=== PATIENT | male | born 1945 | race African-American/Black ===

== ENCOUNTER 2021-01-08 17:03 | Emergency (ER) | payer OTHER ==
[~2021-01-08] VITALS: Ht 175.3 cm; Wt 112.0 kg
[2021-01-08 18:21] LABS: Basophils # (auto) 0.1 10 ^3/uL (0-0.2); Basophils % (auto) 1.1 % (0.0-2.0); Eosinophils # (auto) 0.4 10 ^3/uL (0-0.8); Eosinophils % (auto) 8.9 % (0.0-7.0); Hematocrit 43.9 % (41.0-53.0); Hemoglobin 14.5 g/dL (13.5-17.5); Lymphocytes # (auto) 2.5 10 ^3/uL (0.4-5.4); Lymphocytes % (auto) 50.2 % (10.0-50.0); Mean Corpuscular Hgb Conc. 33.2 g/dL (32.0-36.0); Mean Corpuscular Volume 87.5 fL (80.0-100.0); Monocytes # (auto) 0.6 10 ^3/uL (0-1.3); Monocytes % (auto) 12.1 % (0.0-12.0); Neutrophils # (auto) 1.4 10 ^3/uL (1.6-8.6); Neutrophils % (auto) 27.7 % (37.0-80.0); Nucleated Red Blood Cells % 0.1 %; Red Blood Cells 5.02 10^6/uL (4.5-5.90); Red Cell Distribution Width 14.5 % (11.8-14.3)
[2021-01-08 18:43] LABS: Albumin 3.5 g/dL (3.4-5.0); Anion Gap 6 (5-15); Blood Urea Nitrogen 16 mg/dL (7-18); Calcium 9.1 mg/dL (8.5-10.1); Carbon Dioxide 25 mmol/L (21-32); Chloride 108 mmol/L (98-107); Glucose 97 mg/dL (74-106); Magnesium 2.3 mg/dL (1.6-2.6); Potassium 4.3 mmol/L (3.5-5.1); Sodium 139 mmol/L (136-145)
[2021-01-08 18:50] LABS: Alanine Aminotransferase 30 U/L (16-61); Alkaline Phosphatase 61 U/L (45-117); Aspartate Aminotransferase 17 U/L (15-37); BUN/Creatinine Ratio 12.5; Bilirubin, Total 0.6 mg/dL (0.2-1.0); GFR African American 70 mL/min; GFR Non-African American 58 mL/min; Total Protein 7.6 g/dL (6.4-8.2)
[2021-01-09] MEDS ORDERED: ASPirin 325 MG TAB PO ONE (03:15)
[2021-01-09 04:51] VITALS: BP 147/75
== END 2021-01-09 04:54 | disposition home or self-care (01) ==
LOC: ER 17:05
DX: R07.89 Other chest pain (principal); I10 Essential (primary) hypertension; Z86.73 Personal history of transient ischemic attack (TIA), and cerebral infarction without residual deficits; Z98.890 Other specified postprocedural states
CPT/HCPCS: 36415; 71046; 80053; 83735; 84484; 85025; 93005

== ENCOUNTER 2021-11-02 22:25 | Emergency (ER) | payer MEDICARE, OTHER ==
[~2021-11-02] VITALS: Ht 175.3 cm; Wt 116.6 kg
[2021-11-02] MEDS ORDERED: ALUM & MAG HYDROX-SIMETH LIQ(MAALOX) 30 ML PO ONE (22:45)
[2021-11-02] MEDS ORDERED: ASPirin 81 mg TAB PO ONE (22:45)
[2021-11-02 23:04] VITALS: BP 132/69
[2021-11-02 23:34] LABS: Basophils # (auto) 0 10 ^3/uL (0-0.2); Basophils % (auto) 0.6 % (0.0-2.0); Eosinophils # (auto) 0.4 10 ^3/uL (0-0.8); Eosinophils % (auto) 8.1 % (0.0-7.0); Hematocrit 40.2 % (41.0-53.0); Hemoglobin 13.4 g/dL (13.5-17.5); Lymphocytes # (auto) 2.2 10 ^3/uL (0.4-5.4); Lymphocytes % (auto) 40.9 % (10.0-50.0); Mean Corpuscular Hemoglobin 28.9 pg (28.0-32.0); Mean Corpuscular Hgb Conc. 33.4 g/dL (32.0-36.0); Mean Corpuscular Volume 86.6 fL (80.0-100.0); Monocytes # (auto) 0.9 10 ^3/uL (0-1.3); Monocytes % (auto) 15.7 % (0.0-12.0); Neutrophils # (auto) 1.9 10 ^3/uL (1.6-8.6); Neutrophils % (auto) 34.7 % (37.0-80.0); Nucleated Red Blood Cells % 0.1 %; Red Blood Cells 4.65 10^6/uL (4.5-5.90); Red Cell Distribution Width 14.5 % (11.8-14.3); White Blood Cell 5.5 10^3/uL (4.4-10.8)
[2021-11-02 23:54] LABS: Albumin 3.4 g/dL (3.4-5.0); Calcium 8.7 mg/dL (8.5-10.1); Potassium 3.9 mmol/L (3.5-5.1)
[2021-11-02 23:57] LABS: BUN/Creatinine Ratio 9.7
[2021-11-03 00:04] LABS: Bilirubin, Total 0.7 mg/dL (0.2-1.0); Total Protein 7.2 g/dL (6.4-8.2)
== END 2021-11-03 08:55 | disposition home or self-care (01) ==
LOC: ER 22:25
DX: R07.9 Chest pain, unspecified (principal); I10 Essential (primary) hypertension
CPT/HCPCS: 36415; 71045; 80053; 84484; 85025; 93005

== ENCOUNTER 2024-06-03 01:37 | Emergency (ER) | payer MEDICARE, OTHER ==
[~2024-06-03] VITALS: Ht 175.3 cm; Wt 113.6 kg
--- NOTE | 2024-06-03 02:05 | ED.PDOC ---
HPI Comments HPI: Poor Historian. 78-year-old male presents to emergency department for evaluation of midsternal chest heaviness that happened while he was at rest watching TV at 11:30 p.m. few hours ago. Patient later felt left upper extremity burning sensation. Patient decided to come here for evaluation. Patient took a baby aspirin prior to arrival. Past Medcial History: Hypertension, hyperlipidemia Past Surgical History: Hernia repair REVIEW OF SYSTEMS: CONSTITUTIONAL: Denies acute: fever, diaphoresis, chills, generalized weakness. HEAD: Denies acute: headache, photophobia Eyes: Denies acute: Double vision, vision loss, eye pain, eye discharge. EARS: Denies acute: tinnitus, hearing loss, ear discharge, ear pain, THROAT: Denies acute: sore throat, swelling, difficulty swallowing , pain with swallowing, change in voice. NECK: Denies acute: neck pain, neck swelling, stiff neck. HEART: Denies acute : , palpitations, LUNGS: Denies acute: SOB, wheezing, cough, hemoptysis ABDOMEN: Denies acute: abdominal pain, Nausea, Vomiting, diarrhea, melena , hematemesis, hematochezia SKIN: Denies acute: rash, redness, lesions, itchiness. EXTREMITIES: Denies acute: calf pain, numbness, tingling, weakness, denies pain in extremity. Denies acute: Low back pain. Neuro: Denies acute: focal neurological deficit, motor or sensory focal neurological deficit, tremors, seizure like activity, confusion, dizziness, change in mental status, loss of bowel or bladder function, cauda equina like symptoms. : Denies acute: dysuria, hematuria, flank pain, increase in urinary frequency. PSYCH: Denies acute: hallucination, suicidal ideation, homicidal ideation. PHYSICAL EXAM: General: no acute distress, awake and alert. Head: normocephalic, atraumatic. Neck: supple, trachea is midline, no swelling. Throat: Normal phonation. Eyes:, no erythema, no purulent discharge, no proptosis, no icterus. Heart: regular rate, regular rhythm, no significant murmur appreciated. Lungs: no apparent respiratory distress, Able to speak in full sentences. No wheezing, no rhonchi, no crackles. No stridors Clear to auscultation bilaterally. Abdomen: non tender to palpation, non distended, soft, no guarding, no rebound, + bowel sounds. Obese. Neuro: Awake, Alert, oriented to name, self, situation, follows commands GCS=15. Speech is normal. Skin: no petechia, no purpura, no cyanosis, non-pale, not jaundice. Lower extremities: --no - Pitting edema no deformity, no focal swelling, no calf TTP. Makes eye contact. moves all four extremities. Face: no apparent facial droop. Ambulating in the ED independently. Chief Complaint: Chest Pain Time Seen by MD: 01:57 Reviewed Notes: Nurses Notes, Medications, Allergies Allergies: Coded Allergies: NO KNOWN ALLERGIES (Unverified , 01/08/21) Information Source: Patient Mode of Arrival: Ambulatory Past Medical History PAST MEDICAL HISTORY: Denies Surgical History: Denies all surgeries Family History Family History: Reviewed,noncontributory to illness, No family hx of Cancer, No family hx of DM, No family hx of Heart jaquan, No family hx of HTN, No family hx ofKidney jaquan, No family hx of Liver jaquan, No family hx of Lung jaquan, No family hx of Stroke Social History Smoker: Non-Smoker Alcohol: Denies ETOH Use Drugs: Denies Drug Use Was a procedure done? Was a procedure done?: No CP Differential Dx Differential Diagnosis: N/A Differential Diagnosis: Other (Ddx include but not limitied to gastritis, musculoskeletal pain, radiculopathy, atypical chest pain, dissection, aneurysm, ACS, unstable angina, hiatal hernia, GERD, anxiety, costochondritis, PE, pneumothroax, neoplasm, cardiac ischemia, drug abuse, anemia.) X-Ray, Labs, Meds, VS Vital Signs Date Time Temp Pulse Resp B/P (MAP) Pulse Ox O2 Delivery O2 Flow Rate FiO2 06/03/24 02:43 58 06/03/24 01:43 67 06/03/24 01:42 98.8 61 17 143/69 (93) 96 Lab Test 06/03/24 02:50 06/03/24 01:47 Range/Units Troponin I High Sensitivity 4 4 </=54 ng/L White Blood Count 7.9 4.4-10.8 10^3/uL Red Blood Count 4.61 4.5-5.90 10^6/uL Hemoglobin 13.6 13.5-17.5 g/dL Hematocrit 40.5 L 41.0-53.0 % Mean Corpuscular Volume 87.9 80.0-100.0 fL Mean Corpuscular Hemoglobin 29.4 28.0-32.0 pg Mean Corpuscular Hemoglobin Concent 33.5 32.0-36.0 g/dL Red Cell Distribution Width 14.0 11.8-14.3 % Platelet Count 174 140-450 10^3/uL Mean Platelet Volume 8.0 6.9-10.8 fL Neutrophils (%) (Auto) 37.0-80.0 % Lymphocytes (%) (Auto) 10.0-50.0 % Monocytes (%) (Auto) 0.0-12.0 % Basophils (%) (Auto) 0.0-2.0 % Neutrophils # (Auto) 1.6-8.6 10 ^3/uL Lymphocytes # (Auto) 0.4-5.4 10 ^3/uL Monocytes # (Auto) 0-1.3 10 ^3/uL Differential Total Cells Counted 100.0 100 Neutrophils % (Manual) 25 L 37.0-80.0 Band Neutrophils % (Manual) 0 Lymphocytes % (Manual) 62 H 10.0-50.0 Monocytes % (Manual) 8 0-12 Eosinophils % (Manual) 5 0-7 Basophils % (Manual) 0 0.0-2.0 Metamyelocytes % (manual) 0 Myelocytes % (Manual) 0 Promyelocytes % (Manual) 0 Blast Cells % (Manual) 0 Reactive Lymphocytes 0 Platelet Estimate Adequate Prothrombin Time 10.9 9.3-11.8 sec Prothrombin Time INR 1.03 0.9-1.15 Activated Partial Thromboplast Time 26.8 24.5-34.5 SEC Sodium Level 141 136-145 mmol/L Potassium Level 3.8 3.5-5.1 mmol/L Chloride Level 108 H 98-107 mmol/L Carbon Dioxide Level 26 20-31 mmol/L Anion Gap 7 5-15 Blood Urea Nitrogen 17 9-23 mg/dL Creatinine 1.33 H 0.700-1.30 mg/dL Glomerular Filtration Rate Calc 54 >90 mL/min BUN/Creatinine Ratio 12.8 10.0-20.0 Serum Glucose 103 74-106 mg/dL Calcium Level 10.4 8.7-10.4 mg/dL Magnesium Level 1.9 1.6-2.6 mg/dL Total Bilirubin 0.7 0.2-1.0 mg/dL Aspartate Amino Transferase (AST) 19 13-40 U/L Alanine Aminotransferase (ALT) 28 7-40 U/L Alkaline Phosphatase 54 46-116 U/L B-Type Natriuretic Peptide 20.65 0-100 pg/mL Total Protein 6.9 5.7-8.2 g/dL Albumin 4.1 3.2-4.8 g/dL Time of 1ST Reevaluation: 02:45 Reevaluation 1ST: Improved Patient Education/Counseling: Diagnosis, Treatment Family Education/Counseling: Other Comments Patient presented with the above HPI.---cardiac---workup was initiated. patient was found with the above mentioned diagnosis. the following medications were ordered: Aspirin and nitroglycerin please refer to order lists of meds and tests obtained by myself Dr. Molina. Patient ED course and VS have been stabilized. Patient has been reassessed in the ED and remained in a stable condition. Pertinent incidental findings were discussed with the patient and/or family. Patient/family voices understanding and is agreeable with plan. Patient has been observed in the ED adequate length of time to insure improvement/stability. Escalation of care considered: Consideration of escalation to observation or admission Patient was ADMITTED to the medicine team for further evaluation and treatment of their presentation. All the reports of any imaging studies that were ordered by myself were reviewed by myself. Departure 1 Departure Time of Disposition: 02:04 Impression: Primary Impression: Chest pain Disposition: 09 ADMITTED INPATIENT Admit to: [facility] Condition: Guarded Discharged With: Self Critical Care Note Critical Care Time?: No Heart Score Heart Score: Heart Score Response (Comments) Value History Moderate Suspicious 1 EKG Normal 0 Age >65 2 Risk Factors 1 or 2 risk factors 1 Troponin Normal limit 0 Total 4 HERNAN MOLINA DO Jun 03, 2024 02:05
[2024-06-03 02:16] LABS: Hematocrit 40.5 % (41.0-53.0); Hemoglobin 13.6 g/dL (13.5-17.5); Mean Corpuscular Hemoglobin 29.4 pg (28.0-32.0); Mean Corpuscular Hgb Conc. 33.5 g/dL (32.0-36.0); Mean Corpuscular Volume 87.9 fL (80.0-100.0); Platelet Count (auto) 174 10^3/uL (140-450); Red Blood Cells 4.61 10^6/uL (4.5-5.90); White Blood Cell 7.9 10^3/uL (4.4-10.8)
[2024-06-03 02:20] LABS: Band Neutrophils % (manual) 0; Basophils % (manual) 0 (0.0-2.0); Blast Cells 0; Metamyelocytes % 0; Myelocytes % 0; Promyelocytes % 0; Reactive Lymphocytes 0
[2024-06-03 02:24] LABS: INR 1.03 (0.9-1.15); Partial Thromboplastin Time 26.8 SEC (24.5-34.5); Prothrombin Time 10.9 sec (9.3-11.8)
[2024-06-03 03:14] LABS: Eosinophils % (manual) 5 (0-7); Lymphocytes % (manual) 62 (10.0-50.0); Monocytes % (manual) 8 (0-12); Platelet Estimate Adequate
[2024-06-03 03:21] LABS: Alanine Aminotransferase 28 U/L (7-40); Alkaline Phosphatase 54 U/L (46-116); Anion Gap 7 (5-15); Calcium 10.4 mg/dL (8.7-10.4); Carbon Dioxide 26 mmol/L (20-31); Glucose 103 mg/dL (74-106); Magnesium 1.9 mg/dL (1.6-2.6); Potassium 3.8 mmol/L (3.5-5.1); Sodium 141 mmol/L (136-145)
[2024-06-03 03:22] LABS: Albumin 4.1 g/dL (3.2-4.8); Aspartate Aminotransferase 19 U/L (13-40); BUN/Creatinine Ratio 12.8 (10.0-20.0); Bilirubin, Total 0.7 mg/dL (0.2-1.0); Blood Urea Nitrogen 17 mg/dL (9-23); Total Protein 6.9 g/dL (5.7-8.2)
[2024-06-03 03:27] LABS: Chloride 108 mmol/L (98-107)
--- NOTE | 2024-06-03 03:31 | DVH ---
CHEST RADIOGRAPH Indication: cp Technique: Single frontal view of the chest was obtained Comparison: CHEST PORTABLE on DOS: 11/02/21, CXRP on DOS: 11/02/21 FINDINGS: Lines and Tubes: None Lungs: No focal consolidation. Pleura: No effusion. No pneumothorax. Cardiomediastinal contours: Unremarkable Bones: No acute osseous abnormality. IMPRESSION: No acute cardiopulmonary disease.
--- NOTE | 2024-06-03 06:44 | ECG ---
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
[2024-06-03 07:37] VITALS: BP 164/99; PULSE 77; RESP 17; TEMP 97.9; O2SAT 96
[2024-06-03] MEDS: NITROGLYCERIN 0.4 MG SL TAB SL ONE (07:40)
[2024-06-03] MEDS: ASPirin-EC 325mg tab PO ONE (08:10)
--- NOTE | 2024-06-03 12:21 | ECG ---
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
--- NOTE | 2024-06-03 12:22 | ECG ---
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
== END 2024-06-03 08:56 | disposition left against medical advice (07) ==
LOC: ER 01:37
DX: R07.89 Other chest pain (principal); E78.5 Hyperlipidemia, unspecified; I10 Essential (primary) hypertension; Z98.890 Other specified postprocedural states
CPT/HCPCS: 36415; 71045; 80053; 83735; 83880; 84484; 85007; 85027; 85610; 85730; 93005

== ENCOUNTER 2024-06-13 06:21 | Inpatient (IN) | payer MEDICARE, OTHER ==
[~2024-06-13] VITALS: Ht 175.3 cm; Wt 113.5 kg
--- NOTE | 2024-06-13 07:00 | ED.PDOC ---
HPI Comments 78-year-old male presents with a chief complaint of chest pain x onset last night/this morning at midnight. Patient states that he was at rest, watching TV, when he had sudden onset of chest pain. Patient reports that he has pain to the sternal aspect of his chest, describes as tightness, and rates his pain a 7/10. Patient reports that nothing makes the pain worse, but stretching helps alleviate the pain a noticeable amount. Patient reports that he was seen here on 06/03/2024 for the same chief complaint and was worked up. Patient reports at that time he had an accompanying burning sensation that radiated down his left arm, but not today. EKG shows NSR with rate of 69. No other symptoms or modifying factors present at this time. Chief Complaint: Chest Pain Time Seen by MD: 06:27 Reviewed Notes: Medications, Allergies Allergies: Coded Allergies: NO KNOWN ALLERGIES (Unverified , 01/08/21) Information Source: Patient Mode of Arrival: Ambulatory Severity: Moderate Timing: Hours Duration: Intermittent Prehospital treatment: None Location: Substernal Radiation: No Radiation Quality: Tightness Onset: At Rest History of: Similar pain in past Past Medical History PAST MEDICAL HISTORY: Denies Surgical History: Denies all surgeries Family History Family History: Reviewed,noncontributory to illness, No family hx of Cancer, No family hx of DM, No family hx of Heart jaquan, No family hx of HTN, No family hx ofKidney jaquan, No family hx of Liver jaquan, No family hx of Lung jaquan, No family hx of Stroke Social History Smoker: Non-Smoker Alcohol: Denies ETOH Use Drugs: Denies Drug Use Lives In: Home Constitutional: denies: chills, diaphoresis, fatigue, fever, malaise, sweats, weakness, others EENTM: denies: blurred vision, double vision, ear bleeding, ear discharge, ear drainage, ear pain, ear ringing, eye pain, eye redness, hearing loss, mouth pain, mouth swelling, nasal discharge, nose bleeding, nose congestion, nose pain, photophobia, tearing, throat pain, throat swelling, voice changes, others Respiratory: denies: cough, hemoptysis, orthopnea, SOB at rest, shortness of breath, SOB with excertion, stridor, wheezing, others Cardiovascular: reports: chest pain; denies: dizzy spells, diaphoresis, Dyspnea on exertion, edema, irregular heart beat, left arm pain, lightheadedness, palpitations, PND, syncope, others Gastrointestinal: denies: abdomen distended, abdominal pain, blood streaked bowels, constipated, diarrhea, dysphagia, difficulty swallowing, hematemesis, melena, nausea, poor appetite, poor fluid intake, rectal bleeding, rectal pain, vomiting, others Genitourinary: denies: burning, dysuria, flank pain, frequency, hematuria, incontinence, penile discharge, penile sore, pain, testicle pain, testicle swelling, urgency, others Neurological: denies: dizziness, fainting, headache, left sided numbness, left sided weakness, numbness, paresthesia, pre-existing deficit, right sided numbness, right sided weakness, seizure, speech problems, tingling, tremors, weakness, others Musculoskeletal: denies: back pain, gout, joint pain, joint swelling, muscle pa in, muscle stiffness, neck pain, others Integumetry: denies: bruises, change in color, change in hair/nails, dryness, laceration, lesions, lumps, rash, wounds, others Allergic/Immunocompromised: denies: Difficulty Healing, Frequent Infections, Hives, Itching, others Hematologic/Lymphatic: denies: anemia, blood clots, easy bleeding, easy bruising, swollen glands, others Endocrine: denies: excessive hunger, excessive sweating, excessive thirst, excessive urination, flushing, intolerance to cold, intolerance to heat, unexplained weight gain, unexplained weight loss, others Psychiatric: denies: anxiety, bipolar disorder, depression, hopeless, panic disorder, schizophrenia, sleepless, suicidal, others All Other Systems: Reviewed and Negative Physical Exam General Appearance: Mild Distress, Normal HEENT: NOT DONE Neck: NOT DONE Respiratory: Normal Breath Sounds Cardiovascular: No Murmur, No Gallop, Regular Rate/Rhythm Breast Exam: Deferred Gastrointestinal: NOT DONE Genitalia: Deferred Pelvic: Deferred Rectal: Deferred Extremities: Normal range of motion Neurologic: Alert, No Motor Deficits, Normal Affect, Normal Mood, No Sensory Deficits Cerebellar Function: NOT DONE Reflexes: NOT DONE Skin: Dry, Normal Color, Warm Lymphatic: NOT DONE EKG EKG : Pulse Rate (adult): 69 [place]: Normal Cardiac Rhythm: NSR Block: None Hypertrophy: None ST: Normal Was a procedure done? Was a procedure done?: No CP Differential Dx Differential Diagnosis: A-fib, A-Flutter, Angina, Anxiety / Panic Attack, Atrial Dysrhythmia, AV Block 1st Degree, AV Block 2nd Degree, AV Block 3rd D egree, Electrolyte Disorder, Heart Failure, [place], Pacemaker Malfunction, PSVT, Pulmonary Embolus, PVC's, Renal Failure, Sinus Tachycardia, T[place] Point[place], V-Fib, V-Tach X-Ray, Labs, Meds, VS Vital Signs Date Time Temp Pulse Resp B/P (MAP) Pulse Ox O2 Delivery O2 Flow Rate FiO2 06/13/24 07:41 60 06/13/24 07:36 62 16 97 Room Air* 0 21 06/13/24 07:34 97.8 62 16 131/65 (87) 97 97.8 06/13/24 07:00 69 06/13/24 06:42 69 06/13/24 06:30 98.6 69 18 135/78 (97) 98 Lab Test 06/13/24 07:48 06/13/24 06:44 06/13/24 06:40 Range/Units Troponin I High Sensitivity 4 5 </=54 ng/L Urine Color Yellow Yellow Urine Clarity Clear Clear Urine pH 5.5 5.0-9.0 Urine Specific [place] 1.024 1.001-1.035 Urine Protein 1+ H Negative Urine Ketones Negative Negative Urine Blood 2+ H Negative /uL Urine Nitrite Negative Negative Urine Bilirubin Negative Negative Urine Urobilinogen Normal Negative mg/dL Urine Leukocyte Esterase Negative Negative /uL Urine RBC 17 0 - 3 /hpf Urine Microscopic WBC 2 0-3 /HPF Urine Squamous Epithelial Cells Few <5 /hpf Urine Bacteria None seen None Seen /hpf Urine Hyaline Casts Few 0 - 2 /lpf Urine Mucus Few None Seen Urine Glucose Normal Normal mg/dL White Blood Count 6.3 4.4-10.8 10^3/uL Red Blood Count 4.74 4.5-5.90 10^6/uL Hemoglobin 13.5 13.5-17.5 g/dL Hematocrit 41.3 41.0-53.0 % Mean Corpuscular Volume 87.1 80.0-100.0 fL Mean Corpuscular Hemoglobin 28.5 28.0-32.0 pg Mean Corpuscular Hemoglobin Concent 32.7 32.0-36.0 g/dL Red Cell Distribution Width 14.1 11.8-14.3 % Platelet Count 198 140-450 10^3/uL Mean Platelet Volume 8.3 6.9-10.8 fL Neutrophils (%) (Auto) 28.5 L 37.0-80.0 % Lymphocytes (%) (Auto) 52.8 H 10.0-50.0 % Monocytes (%) (Auto) 10.9 0.0-12.0 % Eosinophils (%) (Auto) 7.1 H 0.0-7.0 % Basophils (%) (Auto) 0.7 0.0-2.0 % Neutrophils # (Auto) 1.8 1.6-8.6 10 ^3/uL Lymphocytes # (Auto) 3.3 0.4-5.4 10 ^3/uL Monocytes # (Auto) 0.7 0-1.3 10 ^3/uL Eosinophils # (Auto) 0.4 0-0.8 10 ^3/uL Basophils # (Auto) 0 0-0.2 10 ^3/uL Nucleated Red Blood Cells 0.1 % Prothrombin Time 10.9 9.3-11.8 sec Prothrombin Time INR 1.03 0.9-1.15 Activated Partial Thromboplast Time 27.4 24.5-34.5 SEC D-Dimer, Quantitative 0.29 0.0-0.49 mg/L FEU Sodium Level 143 136-145 mmol/L Potassium Level 3.8 3.5-5.1 mmol/L Chloride Level 107 98-107 mmol/L Carbon Dioxide Level 27 20-31 mmol/L Anion Gap 9 5-15 Blood Urea Nitrogen 14 9-23 mg/dL Creatinine 1.39 H 0.700-1.30 mg/dL Glomerular Filtration Rate Calc 52 >90 mL/min BUN/Creatinine Ratio 10.1 10.0-20.0 Serum Glucose 97 74-106 mg/dL Calcium Level 10.0 8.7-10.4 mg/dL Total Bilirubin 0.8 0.2-1.0 mg/dL Aspartate Amino Transferase (AST) 15 13-40 U/L Alanine Aminotransferase (ALT) 21 7-40 U/L Alkaline Phosphatase 48 46-116 U/L B-Type Natriuretic Peptide 14.28 0-100 pg/mL Total Protein 7.1 5.7-8.2 g/dL Albumin 4.4 3.2-4.8 g/dL X-Ray, Labs, Meds, VS Comment This 78-year-old male presents secondary to chest pain. His EKG significant for multiple PVCs. He was troponin was negative x2. However, the patient has a heart score 5. Considering his cardiac history, age and comorbidities, the patient will be admitted for further workup management of his acute coronary syndrome. Time of 1ST Reevaluation: 06:57 Reevaluation 1ST: Unchanged Patient Education/Counseling: Diagnosis, Treatment, Need For Follow Up Family Education/Counseling: Diagnosis, Treatment, Need For Follow Up Departure 1 Departure Time of Disposition: 09:43 Impression: Primary Impression: Chest pain Additional Impressions: Angina pectoris Acute coronary syndrome Disposition: ADMITTED INPATIENT Admit to: [facility] Condition: Serious Critical Care Note Critical Care Time?: No Stability Stability form required: No Heart Score Heart Score: Heart Score Response (Comments) Value History Moderate Suspicious 1 EKG Repolarization Disturb 1 Age >65 2 Risk Factors 1 or 2 risk factors 1 Troponin Normal limit 0 Total 5 I personally scribed for BRIAN LAINEZ MD ([email or web address]) on 06/13/24 at 07:00. Electronically submitted by Adebayo Pathak ([email or web address]). BRIAN LAINEZ MD Jun 13, 2024 07:00
[2024-06-13 07:17] LABS: Urine Bacteria None Seen /hpf (None Seen)
[2024-06-13 07:23] LABS: Basophils # (auto) 0 10 ^3/uL (0-0.2); Basophils % (auto) 0.7 % (0.0-2.0); Eosinophils # (auto) 0.4 10 ^3/uL (0-0.8); Eosinophils % (auto) 7.1 % (0.0-7.0); Hematocrit 41.3 % (41.0-53.0); Hemoglobin 13.5 g/dL (13.5-17.5); Lymphocytes # (auto) 3.3 10 ^3/uL (0.4-5.4); Lymphocytes % (auto) 52.8 % (10.0-50.0); Mean Corpuscular Hemoglobin 28.5 pg (28.0-32.0); Mean Corpuscular Hgb Conc. 32.7 g/dL (32.0-36.0); Mean Corpuscular Volume 87.1 fL (80.0-100.0); Monocytes # (auto) 0.7 10 ^3/uL (0-1.3); Monocytes % (auto) 10.9 % (0.0-12.0); Neutrophils # (auto) 1.8 10 ^3/uL (1.6-8.6); Neutrophils % (auto) 28.5 % (37.0-80.0); Nucleated Red Blood Cells % 0.1 %; Platelet Count (auto) 198 10^3/uL (140-450); Red Blood Cells 4.74 10^6/uL (4.5-5.90); Red Cell Distribution Width 14.1 % (11.8-14.3); White Blood Cell 6.3 10^3/uL (4.4-10.8)
[2024-06-13 07:26] LABS: Urine Blood 2+ /uL (Negative); Urine Clarity Clear (Clear); Urine Color Yellow (Yellow); Urine Hyaline Cast FEW /lpf (0 - 2); Urine Mucus FEW (None Seen); Urine Protein, UAD 1+ (Negative); Urine Specific Gravity 1.024 (1.001-1.035); Urine Squamous Epithelial Cell FEW /hpf (<5); Urine Urobilinogen Normal (Negative); Urine WBC 2 /HPF (0-3); Urine pH 5.5 (5.0-9.0)
[2024-06-13 07:33] LABS: Alanine Aminotransferase 21 U/L (7-40); Albumin 4.4 g/dL (3.2-4.8); Alkaline Phosphatase 48 U/L (46-116); Anion Gap 9 (5-15); Aspartate Aminotransferase 15 U/L (13-40); BUN/Creatinine Ratio 10.1 (10.0-20.0); Bilirubin, Total 0.8 mg/dL (0.2-1.0); Blood Urea Nitrogen 14 mg/dL (9-23); Carbon Dioxide 27 mmol/L (20-31); Chloride 107 mmol/L (98-107); Glucose 97 mg/dL (74-106); Potassium 3.8 mmol/L (3.5-5.1); Sodium 143 mmol/L (136-145); Total Protein 7.1 g/dL (5.7-8.2)
[2024-06-13 07:36] VITALS: PULSE 62; RESP 16; O2SAT 97
--- NOTE | 2024-06-13 07:40 | DVH ---
EXAM: XR Chest, 1 View CLINICAL INDICATION: chest pain TECHNIQUE: Frontal view of the chest. COMPARISON: XY CHEST PORTABLE on DOS: 06/03/24, CHEST PORTABLE on DOS: 11/02/21, CXRP on DOS: 11/02/21 FINDINGS: LUNGS AND PLEURAL SPACES: Unremarkable. No consolidation. No pneumothorax. HEART: Unremarkable. No cardiomegaly. MEDIASTINUM: Unremarkable. Normal mediastinal contour. BONES/JOINTS: Unremarkable. No acute fracture. OTHER FINDINGS: . None. . . .. IMPRESSION: No acute cardiopulmonary process.
[2024-06-13 07:44] LABS: INR 1.03 (0.9-1.15); Partial Thromboplastin Time 27.4 SEC (24.5-34.5); Prothrombin Time 10.9 sec (9.3-11.8)
--- NOTE | 2024-06-13 07:52 | ECG ---
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
[2024-06-13] MEDS ORDERED: MORPHINE SULFATE 4 MG/ML SYR/VIAL IV PRN (10:30)
[2024-06-13] MEDS ORDERED: NITROGLYCERIN 0.4 MG SL TAB SL PRN ×2 (10:30)
[2024-06-13] MEDS ORDERED: ACETAMINOPHEN 325 MG TAB PO PRN (10:30)
[2024-06-13] MEDS ORDERED: ALBUTEROL SULF 2.5 MG/0.5ML(0.5%) NEB SOLN NEB PRN (10:30)
[2024-06-13] MEDS ORDERED: MORPHINE SULFATE INJ 2 MG/ml SYRG IV PRN (10:30)
[2024-06-13] MEDS ORDERED: IPRATROPIUM BROM 0.5 MG/2.5ML INH SOL NEB PRN (10:30)
[2024-06-13] MEDS ORDERED: ONDANSETRON HCL 4 MG/2 ML VIAL IV PRN (10:30)
[2024-06-13] MEDS ORDERED: ASPI-325 (10:47)
[2024-06-13] MEDS ORDERED: AMLO1TAB22 (10:47)
[2024-06-13] MEDS ORDERED: ROSU5TAB24 (10:47)
--- NOTE | 2024-06-13 11:03 | DVHHP2 ---
History of Present Illness Reason for Visit: Chest pain History of Present Illness Grzegorz Jhaveri is a 78-year-old male with past medical history of hypertension, hyperlipidemia, AFib, and hernia repair who presents to the ED with chest pain and weight loss of 7 lbs in the last month. Patient reports that the chest pain started at midnight while he was at home sitting on his couch. Patient reports the pain 6/10 constant and it feels like someone is sitting on his chest. Patient also states that the chest pain was radiating to his back and alleviating factors were doing stretches. Patient states that there are no triggers to the pain. Patient denies any recent sick contacts, recent travels, fever, chills, SOB, lightheadedness, dizziness, weakness, abdominal pain, nausea, vomiting, and diarrhea. Cardiovascular: AFIB, HTN, hyperipidemia Past Surgical History: Hernia Repair Family History: Other (Dad with kidney failure) Smoke: No ALCOHOL: none Drugs: None Lives: with Family Domestic Violence: Neg Review of Systems Constitutional: Yes: Other (Weight loss); No: Fever, Chills, Sweats, Weakness, Malaise Eyes: No: Pain, Vision change, Conjunctivae inflammation, Eyelid inflammation, Other, Redness ENT: No: Ear pain, Ear discharge, Nose pain, Nose discharge, Nose congestion, Mouth pain, Mouth swelling, Throat pain, Throat swelling, Other Respiratory: No: Cough, Dry, Shortness of breath, SOB with excertion, Wheezing, Hemoptysis, Pleuritic Pain, Sputum, Wheezing, Other Cardiovascular: Chest Pain; No: Palpitations, Orthopnea, Paroxysmal Noc. Dyspnea, Edema, Lt Headedness, Other Gastrointestinal: No: Nausea, Vomiting, Abdominal Pain, Diarrhea, Constipation, Melena, Hematochezia, Other Genitourinary: No Dysuria, No Frequency, No Incontinence, No Hematuria, No Retention, No Other Musculoskeletal: back pain; No: other, neck pain, shoulder pain, arm pain, hand pain, leg pain, foot pain Skin: No: Rash, Lesions, Jaundice, Bruising, Other Neurological: No: Weakness, Numbness, Incoordination, Change in speech, Confusion, Seizures, Other Allergies: Coded Allergies: NO KNOWN ALLERGIES (Unverified , 01/08/21) Exam Vital Signs Vital Signs Date Time Temp Pulse Resp B/P (MAP) Pulse Ox O2 Delivery O2 Flow Rate FiO2 06/13/24 09:52 55 17 137/65 (89) 99 06/13/24 07:36 Room Air* 0 21 06/13/24 07:34 97.8 97.8 General Appearance: Alert, Oriented X3, Cooperative, No acute distress HEENT: Atraumatic, PERRLA, EOMI, Mucous membr. moist/pink Respiratory: Clear to auscultation, Normal air movement Cardiovascular: Normal S1, Normal S2, No murmurs Abdominal: Normal bowel sounds, Soft, No tenderness, No hepatospenomegaly, No masses Extremities: No clubbing, No cyanosis, No edema, Normal pulses, No tendernes s/swelling Skin: No rashes, No breakdown, No significant lesion Neuro: Normal gait, Normal speech, Strength at 5/5 X4 ext, Normal tone, Sensation intact Psych/Mental Status: Mental status NL, Mood NL Labs/Xrays Labs Test 06/13/24 09:45 06/13/24 06:44 06/13/24 06:40 Range/Units Troponin I High Sensitivity 3 L </=54 ng/L Urine Color Yellow Yellow Urine Clarity Clear Clear Urine pH 5.5 5.0-9.0 Urine Specific [place] 1.024 1.001-1.035 Urine Protein 1+ H Negative Urine Ketones Negative Negative Urine Blood 2+ H Negative /uL Urine Nitrite Negative Negative Urine Bilirubin Negative Negative Urine Urobilinogen Normal Negative mg/dL Urine Leukocyte Esterase Negative Negative /uL Urine RBC 17 0 - 3 /hpf Urine Microscopic WBC 2 0-3 /HPF Urine Squamous Epithelial Cells Few <5 /hpf Urine Bacteria None seen None Seen /hpf Urine Hyaline Casts Few 0 - 2 /lpf Urine Mucus Few None Seen Urine Glucose Normal Normal mg/dL White Blood Count 6.3 4.4-10.8 10^3/uL Red Blood Count 4.74 4.5-5.90 10^6/uL Hemoglobin 13.5 13.5-17.5 g/dL Hematocrit 41.3 41.0-53.0 % Mean Corpuscular Volume 87.1 80.0-100.0 fL Mean Corpuscular Hemoglobin 28.5 28.0-32.0 pg Mean Corpuscular Hemoglobin Concent 32.7 32.0-36.0 g/dL Red Cell Distribution Width 14.1 11.8-14.3 % Platelet Count 198 140-450 10^3/uL Mean Platelet Volume 8.3 6.9-10.8 fL Neutrophils (%) (Auto) 28.5 L 37.0-80.0 % Lymphocytes (%) (Auto) 52.8 H 10.0-50.0 % Monocytes (%) (Auto) 10.9 0.0-12.0 % Eosinophils (%) (Auto) 7.1 H 0.0-7.0 % Basophils (%) (Auto) 0.7 0.0-2.0 % Neutrophils # (Auto) 1.8 1.6-8.6 10 ^3/uL Lymphocytes # (Auto) 3.3 0.4-5.4 10 ^3/uL Monocytes # (Auto) 0.7 0-1.3 10 ^3/uL Eosinophils # (Auto) 0.4 0-0.8 10 ^3/uL Basophils # (Auto) 0 0-0.2 10 ^3/uL Nucleated Red Blood Cells 0.1 % Prothrombin Time 10.9 9.3-11.8 sec Prothrombin Time INR 1.03 0.9-1.15 Activated Partial Thromboplast Time 27.4 24.5-34.5 SEC D-Dimer, Quantitative 0.29 0.0-0.49 mg/L FEU Sodium Level 143 136-145 mmol/L Potassium Level 3.8 3.5-5.1 mmol/L Chloride Level 107 98-107 mmol/L Carbon Dioxide Level 27 20-31 mmol/L Anion Gap 9 5-15 Blood Urea Nitrogen 14 9-23 mg/dL Creatinine 1.39 H 0.700-1.30 mg/dL Glomerular Filtration Rate Calc 52 >90 mL/min BUN/Creatinine Ratio 10.1 10.0-20.0 Serum Glucose 97 74-106 mg/dL Calcium Level 10.0 8.7-10.4 mg/dL Total Bilirubin 0.8 0.2-1.0 mg/dL Aspartate Amino Transferase (AST) 15 13-40 U/L Alanine Aminotransferase (ALT) 21 7-40 U/L Alkaline Phosphatase 48 46-116 U/L B-Type Natriuretic Peptide 14.28 0-100 pg/mL Total Protein 7.1 5.7-8.2 g/dL Albumin 4.4 3.2-4.8 g/dL EXAM: XR Chest, 1 View CLINICAL INDICATION: chest pain TECHNIQUE: Frontal view of the chest. COMPARISON: XY CHEST PORTABLE on DOS: 06/03/24, CHEST PORTABLE on DOS: 11/02/21, CXRP on DOS: 11/02/21 FINDINGS: LUNGS AND PLEURAL SPACES: Unremarkable. No consolidation. No pneumothorax. HEART: Unremarkable. No cardiomegaly. MEDIASTINUM: Unremarkable. Normal mediastinal contour. BONES/JOINTS: Unremarkable. No acute fracture. OTHER FINDINGS: . None. . . .. IMPRESSION: No acute cardiopulmonary process. Assessment/Plan Assessment/Plan Assessment/Plan: Chest pain rule out ACS Proteinuria SOPHIA Labs UA EKG Troponin negative x2 BNP D-dimer PT/PTT X-ray Mag level ACS protocol Echo ordered IV fluids P.r.n. respiratory treatments Chronic hypertension Continue home medications Chronic hyperlipidemia Continue medication History of AFib Patient states he does not take any medication FEN/PPX cardiac diet IV fluids DVT prophylaxis not indicated patient ambulating PUD prophylaxis not indicated patient has no history of GERD or GI bleed home medications reconciled discussed plan of care with patient and nurse Admit to tele Plan discussed with: Patient My Orders Orders - LUIS PHILLIPS STROBOROMA OPERATOR Procedure Category Date Status Time Albuterol Medneb PHA 06/13/24 Verified (Ventolin Medneb) 10:30 Ipratropium Medneb PHA 06/13/24 Verified (Atrovent Medneb) 10:30 Admit ADMIT 06/13/24 Verified 10:19 Code Status CODE 06/13/24 Verified 10:19 Vital Signs SOPHIE 06/13/24 Verified 10:19 Executive Business Coach SOPHIE 06/13/24 Verified 10:19 Cardiac DIET 06/13/24 Verified Diet-2gna,Lofat,Lochol Lunch Aspirin Tablet PHA 06/14/24 Verified 10:00 Lipitor 40mg Hs PHA 06/13/24 Verified Hi-Intensity 22:00 Morphine Sulfate PHA 06/13/24 Verified Injection 10:30 Acetaminophen Tablet PHA 06/13/24 Verified (Tylenol Tablet) 10:30 Complete Blood Count LAB 06/14/24 Verified 04:00 Basic Metabolic Panel LAB 06/14/24 Verified 04:00 Magnesium LAB 06/14/24 Verified 04:00 Echo 2d Mode Cardiac US 06/13/24 Verified DOP 10:19 Nitroglycerin PHA 06/13/24 Verified Sublingual (Ntrostat 10:30 Ondansetron Hcl PHA 06/13/24 Verified (Zofran) 10:30 Date of Service: Jun 13, 2024 Billing Provider: LUIS PHILLIPS Common Visit Codes: [id number] INP/OBS CARE (HIGH) LUIS PHILLIPS Jun 13, 2024 11:03
[2024-06-13 11:44] VITALS: BP 126/56; PULSE 54; RESP 12; TEMP 98.5; O2SAT 97
[2024-06-13] MEDS: SODIUM CHLORIDE 0.9% 1,000 ML IV SCH (12:25)
[2024-06-13] MEDS: ASPirin 81 mg TAB PO SCH (12:32)
[2024-06-13 13:30] VITALS: BP 121/53; RESP 17; TEMP 97.5; O2SAT 97
[2024-06-13 15:18] LABS: Triglycerides 68 mg/dL (< 150)
[2024-06-13 15:19] LABS: LDL Cholesterol 41 mg/dL (< 100)
[2024-06-13 15:20] LABS: HDL Cholesterol 54 mg/dL (40-59)
[2024-06-13 15:21] LABS: Cholesterol 114 mg/dL (< 200)
[2024-06-13 15:53] LABS: Amphetamine Screen, Urine Neg (NEGATIVE); Barbiturate Scree,Urine Neg (NEGATIVE); Benzodiazephine Screen, Urine Neg (NEGATIVE); Cannabinoid Screen, Urine Neg (NEGATIVE); Cocaine Screen, Urine Neg (NEGATIVE); Opiate Scree,Urine Neg (NEGATIVE); Phencyclidine Screen, Urine Neg (NEGATIVE)
[2024-06-13] MEDS ORDERED: LOSA100T33 (16:57)
--- NOTE | 2024-06-13 16:58 | DVHINCON2 ---
Date Seen: Jun 13, 2024 Referring Physician HEMAL Maradiaga Reason for Consultation Chest pain, bradycardia History of Present Illness This is a 78-year-old male patient who presents to emergency room with chief complaint of chest pain. The patient reports that the chest pain began at approximately midnight while he was sitting on his couch. He describes it as unprovoked, intermittent, pressure-like in nature, left-sided with radiation to his mid sternal area. He denies any associated symptoms. Initial twelve lead electrocardiogram reveals sinus rhythm with PVCs. The patient was also noted to have episodes of bradycardia on secured entrance monitor, which are nonsustained. Ini tial troponin level has been negative. Significant past medical history includes hypertension, dyslipidemia, transient atrial fibrillation without NOAC therapy, kidney stones, and obesity. The patient reports that he sees dramatic arts historian Dr. Aviles in the outpatient setting, in [facility]. He reports undergoing a cardiac catheterization without catheter-based intervention given no coronary artery disease at [facility] in 2008. He has also been seen at this facility in March 2023 where he underwent a nuclear stress test that was negative. He reports recently going for a treadmill stress test with his dramatic arts historian approximately six months ago in which he states that the results were negative. Past Medical History Past medical history reviewed. No other significant than mentioned above. Past Surgical History Hernia repair Family History: Hypertension G8 MOTHER Kidney disease G8 FATHER Prostate problems G8 FATHER Family History Family history reviewed. Allergies: Coded Allergies: NO KNOWN ALLERGIES (Unverified , 01/08/21) Home Meds Reported Medications Losartan Potassium & Hydrochlo (Losartan Potassium/Hydroc) 1 Tab Tab 06/13/24 Rosuvastatin Calcium (Rosuvastatin Calcium) 5 Mg Tab, 1 TAB DAILY 06/13/24 Amlodipine Besylate (Amlodipine Besylate) 5 Mg Tab, 1 TAB DAILY 06/13/24 Aspirin (Aspirin Low Dose) 81 Mg Tab, 1 TAB DAILY 06/13/24 Home Meds Home medications reviewed. Current Medications Current Medications Medications (Trade) Dose Ordered Sig/Jimenez Route PRN Reason Start Time Stop Time Status Last Admin Albuterol (Ventolin Medneb) 2.5 mg Q4HPRN PRN NEB SHORTNESS OF BREATH 06/13/24 10:30 UNV Ipratropium [place] (Atrovent Medneb) 0.5 mg Q4HPRN PRN NEB SHORTNESS OF BREATH 06/13/24 10:30 UNV Aspirin 81 mg DAILY PO 06/13/24 11:44 06/13/24 12:32 Atorvastatin Calcium (Lipitor) 40 mg HS PO 06/13/24 22:00 Morphine Sulfate 2 mg Q30MP PRN IV FOR CHEST PAIN 06/13/24 10:30 Acetaminophen (Tylenol Tablet) 650 mg Q6HP PRN PO MILD PAIN (1-3 PAIN SCALE) 06/13/24 10:30 Nitroglycerin (Ntrostat Sublingual) 0.4 mg Q5MINP PRN SL FOR CHEST PAIN 06/13/24 10:30 Ondansetron HCl (Zofran) 4 mg Q4HP PRN IV NAUSEA / VOMITING 06/13/24 10:30 Nitroglycerin (Ntrostat Sublingual) 0.4 mg Q5MINP PRN SL FOR CHEST PAIN 06/13/24 10:30 06/13/24 11:44 DC Morphine Sulfate 2 mg Q30M PRN IV FOR CHEST PAIN 06/13/24 10:30 06/13/24 11:44 DC Sodium Chloride 1,000 ml @ 75 mls/hr [id number] IV 06/13/24 10:30 06/13/24 12:25 Review of Systems Constitutional: No symptom reported Ears, Nose, & Throat: No symptom reported Eyes: No symptom reported Neurological: No symptoms reported Pulmonary/Respiratory: No symptoms reported Cardiovascular: Chest pain Gastrointestinal: No symptom reported Genitourinary: No symptom reported Musculoskeletal: No symptom reported Skin: No symptom reported Psychiatric: No symptom reported Endocrine: No symptom reported Hematologic/Lymphatic: No symptom reported Vital Signs Vital Signs Date Time Temp Pulse Resp B/P (MAP) Pulse Ox O2 Delivery O2 Flow Rate FiO2 06/13/24 13:30 97.5 17 121/53 (75) 97 97.5 06/13/24 11:44 Room Air* 0 21 06/13/24 11:44 54 Physical Exam General Appearance: Cooperative. Well-developed. Well-nourished. No acute distress. Pulmonary/Respiratory: Clear, bilateral breaths sounds. Cardiovascular/Chest: Regular rate and rhythm. Peripheral Pulses: 2+ Radial (R). 2+ Radial (L). 2+ Pedal (R). 2+ Pedal (L) Abdominal Exam: Normal bowel sounds. Ankle Exam: Negative ankle edema Lower extremities: Negative lower extremity edema Neuro/Mental Status: A/OX4, coherent. Thoughts/Psych: Normal thought pattern. Appropriate mood and affect. Good judgment and insight. Appearance: No acute distress. Skin Exam: Normal inspection. Normal color. Warm and dry. Labs/Diagnostic Data Labs Test 06/13/24 16:31 06/13/24 09:45 06/13/24 06:44 06/13/24 06:40 Range/Units Magnesium Level 2.0 1.6-2.6 mg/dL Troponin I High Sensitivity 3 L </=54 ng/L Triglycerides Level 68 < 150 mg/dL Cholesterol Level 114 < 200 mg/dL LDL Cholesterol 41 < 100 mg/dL HDL Cholesterol 54 40-59 mg/dL Thyroid Stimulating Hormone (TSH) 1.56 0.55-4.78 uIU/mL Urine Color Yellow Yellow Urine Clarity Clear Clear Urine pH 5.5 5.0-9.0 Urine Specific [place] 1.024 1.001-1.035 Urine Protein 1+ H Negative Urine Ketones Negative Negative Urine Blood 2+ H Negative /uL Urine Nitrite Negative Negative Urine Bilirubin Negative Negative Urine Urobilinogen Normal Negative mg/dL Urine Leukocyte Esterase Negative Negative /uL Urine RBC 17 0 - 3 /hpf Urine Microscopic WBC 2 0-3 /HPF Urine Squamous Epithelial Cells Few <5 /hpf Urine Bacteria None seen None Seen /hpf Urine Hyaline Casts Few 0 - 2 /lpf Urine Mucus Few None Seen Urine Glucose Normal Normal mg/dL Urine Opiates Screen Neg NEGATIVE Urine Fentanyl Screen Neg NEGATIVE Urine Barbiturates Screen Neg NEGATIVE Urine Phencyclidine Screen Neg NEGATIVE Urine Amphetamines Screen Neg NEGATIVE Urine Benzodiazepines Screen Neg NEGATIVE Urine Cocaine Screen Neg NEGATIVE Urine Cannabinoids Screen Neg NEGATIVE White Blood Count 6.3 4.4-10.8 10^3/uL Red Blood Count 4.74 4.5-5.90 10^6/uL Hemoglobin 13.5 13.5-17.5 g/dL Hematocrit 41.3 41.0-53.0 % Mean Corpuscular Volume 87.1 80.0-100.0 fL Mean Corpuscular Hemoglobin 28.5 28.0-32.0 pg Mean Corpuscular Hemoglobin Concent 32.7 32.0-36.0 g/dL Red Cell Distribution Width 14.1 11.8-14.3 % Platelet Count 198 140-450 10^3/uL Mean Platelet Volume 8.3 6.9-10.8 fL Neutrophils (%) (Auto) 28.5 L 37.0-80.0 % Lymphocytes (%) (Auto) 52.8 H 10.0-50.0 % Monocytes (%) (Auto) 10.9 0.0-12.0 % Eosinophils (%) (Auto) 7.1 H 0.0-7.0 % Basophils (%) (Auto) 0.7 0.0-2.0 % Neutrophils # (Auto) 1.8 1.6-8.6 10 ^3/uL Lymphocytes # (Auto) 3.3 0.4-5.4 10 ^3/uL Monocytes # (Auto) 0.7 0-1.3 10 ^3/uL Eosinophils # (Auto) 0.4 0-0.8 10 ^3/uL Basophils # (Auto) 0 0-0.2 10 ^3/uL Nucleated Red Blood Cells 0.1 % Prothrombin Time 10.9 9.3-11.8 sec Prothrombin Time INR 1.03 0.9-1.15 Activated Partial Thromboplast Time 27.4 24.5-34.5 SEC D-Dimer, Quantitative 0.29 0.0-0.49 mg/L FEU Sodium Level 143 136-145 mmol/L Potassium Level 3.8 3.5-5.1 mmol/L Chloride Level 107 98-107 mmol/L Carbon Dioxide Level 27 20-31 mmol/L Anion Gap 9 5-15 Blood Urea Nitrogen 14 9-23 mg/dL Creatinine 1.39 H 0.700-1.30 mg/dL Glomerular Filtration Rate Calc 52 >90 mL/min BUN/Creatinine Ratio 10.1 10.0-20.0 Serum Glucose 97 74-106 mg/dL Calcium Level 10.0 8.7-10.4 mg/dL Total Bilirubin 0.8 0.2-1.0 mg/dL Aspartate Amino Transferase (AST) 15 13-40 U/L Alanine Aminotransferase (ALT) 21 7-40 U/L Alkaline Phosphatase 48 46-116 U/L B-Type Natriuretic Peptide 14.28 0-100 pg/mL Total Protein 7.1 5.7-8.2 g/dL Albumin 4.4 3.2-4.8 g/dL Assessment Chest pain, rule out ACS Sinus bradycardia with PVCs Hypertension Dyslipidemia History of transient atrial fibrillation Acute kidney injury Morbid obesity Plan/Recommendation We will continue with following plan/recommendations (Dr. Rodriges): -Case reviewed and discussed with . We will proceed with obtaining a transthoracic echocardiogram to evaluate cardiac function. At this time, troponin levels are negative, twelve lead electrocardiogram shows no significant ST segment changes, and there is no current indication for ischemic workup. The patient also recently underwent a stress test with his primary dramatic arts historian approximately six months ago which was negative. Continue with BP control and lipid-lowering agent. -We will also recommend to avoid AV rosalina blocking agents and keep close cardiac surveillance. Notify cardiology team of any ECG changes such as pauses or high- degree atrioventricular blocks.. Monitor and replete electrolytes as needed. Thank you for allowing us to care for this patient. Please call with any questions or concerns. Critical care time spent: 40 minutes This medical document was created using an electronic medical record system with voice recognition software and computerized dictation system. Although this document has been carefully reviewed, there might still be some phonetic and typographical errors. Occasional wrong-word or ``sound-alike substitutions may have occurred due to the inherent limitations of voice recognition software. These areas are purely typographical due to imperfections of the software programs and do not reflect any compromise in the patient's medical care. Please read the chart carefully and recognize, using context, where these substitutions have occurred. Plan discussed with: Patient NYHA Physical activity limitations: NA Date of Service: Jun 13, 2024 Billing Provider: MIKE HASTINGS Cardiology Common Codes: [id number] INP/OBS CARE (High) Cardiology Consultation Codes: [id number] CONSULT <45MIN MIKE HASTINGS Jun 13, 2024 16:58
[2024-06-13 17:07] VITALS: BP 120/75; PULSE 52; RESP 16; TEMP 97.8; O2SAT 100
[2024-06-13] MEDS: MAGNESIUM OXIDE 400 MG TAB PO ONE (18:11)
[2024-06-13 19:00] VITALS: PULSE 46; RESP 18; O2SAT 98
[2024-06-13 21:00] VITALS: BP 103/55; PULSE 59; RESP 19; TEMP 97.7; O2SAT 96
[2024-06-13] MEDS: ATORVASTATIN 20 MG TAB PO SCH (22:06)
[2024-06-14] VITALS (8 sets, daily range): BP systolic 106–123; BP diastolic 57–74; PULSE 48–70; RESP 15–18; TEMP 97.7–98.1; O2SAT 49–99
[2024-06-14 07:39] LABS: Basophils # (auto) 0 10 ^3/uL (0-0.2); Basophils % (auto) 0.8 % (0.0-2.0); Eosinophils # (auto) 0.3 10 ^3/uL (0-0.8); Eosinophils % (auto) 6.2 % (0.0-7.0); Hematocrit 37.6 % (41.0-53.0); Hemoglobin 12.5 g/dL (13.5-17.5); Lymphocytes # (auto) 2.5 10 ^3/uL (0.4-5.4); Lymphocytes % (auto) 46.8 % (10.0-50.0); Mean Corpuscular Hemoglobin 28.6 pg (28.0-32.0); Mean Corpuscular Hgb Conc. 33.3 g/dL (32.0-36.0); Monocytes # (auto) 0.6 10 ^3/uL (0-1.3); Monocytes % (auto) 11.2 % (0.0-12.0); Neutrophils # (auto) 1.9 10 ^3/uL (1.6-8.6); Nucleated Red Blood Cells % 0.1 %; Platelet Count (auto) 169 10^3/uL (140-450); Red Blood Cells 4.37 10^6/uL (4.5-5.90); Red Cell Distribution Width 14.3 % (11.8-14.3); White Blood Cell 5.4 10^3/uL (4.4-10.8)
[2024-06-14 07:47] LABS: Anion Gap 8 (5-15); Calcium 9.6 mg/dL (8.7-10.4); Carbon Dioxide 27 mmol/L (20-31); Chloride 106 mmol/L (98-107); Potassium 3.8 mmol/L (3.5-5.1); Sodium 141 mmol/L (136-145)
[2024-06-14 07:52] LABS: BUN/Creatinine Ratio 9.3 (10.0-20.0); Blood Urea Nitrogen 10 mg/dL (9-23); Glucose 94 mg/dL (74-106)
[2024-06-14] MEDS: MAGNESIUM OXIDE 400 MG TAB PO SCH (09:24)
--- NOTE | 2024-06-14 11:10 | ECG ---
[facility] Test Date: 2024-06-14 Test Time: 04:16:18 Pat Name: REAGAN MCKEON Department: Respiratoy Room: 0219 B Gender: M Accounts Receivable Analyst: : 1945 Requested By: LUIS PHILLIPS Order Number: [id number] Reading MD: Home Arthur Measurements Intervals [place] Rate: 50 P: 72 NE: 184 QRS: 51 QRSD: 91 T: 43 QT: 463 QTc: 423 Interpretive Statements Sinus rhythm Multiple premature complexes, vent & supraven Electronically Signed On 06-16-2024 8:15:56 PST by Home Arthur Please click the below link to view image of tracing.
--- NOTE | 2024-06-14 12:54 | DVHPN2 ---
Reviewed: Care Plan, H&P, Labs, Medications, Previous Orders, Radiology Changes from previous H/P or p: No Changes Eyes: No Pain, No Vision change, No Conjunctivae inflammation, No Eyelid inflammation, No Other, No Redness ENT: No Ear pain, No Ear discharge, No Nose pain, No Nose discharge, No Nose congestion, No Mouth pain, No Mouth swelling, No Throat pain, No Throat swelling, No Other Cardiovascular: Chest Pain; No Palpitations, No Orthopnea, No Paroxysmal Noc. Dyspnea, No Edema, No Lt Headedness, No Other Respiratory: No Cough, No Dry, No Shortness of breath, No SOB with excertion, No Wheezing, No Hemoptysis, No Pleuritic Pain, No Sputum, No Other Gastrointestinal: No Nausea, No Vomiting, No Abdominal Pain, No Diarrhea, No Constipation, No Melena, No Hematochezia, No Other Genitourinary: No Dysuria, No Frequency, No Incontinence, No Hematuria, No Retention, No Other Musculoskeletal: No other, No neck pain, No shoulder pain, No arm pain; back pain; No hand pain, No leg pain, No foot pain Skin: No Rash, No Lesions, No Jaundice, No Bruising, No Other Objective Vitals Vital Signs Date Time Temp Pulse Resp B/P (MAP) Pulse Ox O2 Delivery O2 Flow Rate FiO2 06/14/24 08:00 50 17 98 Room Air* 0 21 06/14/24 07:54 97.9 117/60 (79) 97.9 Intake/Output Intake and Output 06/14/24 07:00 Intake Total 1905 ml Balance 1905 ml Intake Oral 680 ml IV Total 1225 ml # Voids 5 Medications Current Medications Medications Dose Ordered Sig/Jimenez Route Start Time Stop Time Status Last Admin Dose Admin Albuterol 2.5 mg Q4HPRN PRN NEB 06/13/24 10:30 UNV Ipratropium [place] 0.5 mg Q4HPRN PRN NEB 06/13/24 10:30 UNV Aspirin 81 mg DAILY PO 06/13/24 11:44 06/14/24 09:24 81 MG Atorvastatin Calcium 40 mg HS PO 06/13/24 22:00 06/13/24 22:06 40 MG Morphine Sulfate 2 mg Q30MP PRN IV 06/13/24 10:30 Acetaminophen 650 mg Q6HP PRN PO 06/13/24 10:30 Nitroglycerin 0.4 mg Q5MINP PRN SL 06/13/24 10:30 Ondansetron HCl 4 mg Q4HP PRN IV 06/13/24 10:30 Sodium Chloride 1,000 ml @ 75 mls/hr [id number] IV 06/13/24 10:30 06/14/24 03:00 75 MLS/HR Magnesium Oxide 400 mg DAILY PO 06/14/24 10:00 06/14/24 09:24 400 MG Laboratory Results Laboratory Tests 06/14/24 06:30 Chemistry Test 06/14/24 06:30 Calcium Level 9.6 mg/dL (8.7-10.4) Magnesium Level 2.0 mg/dL (1.6-2.6) HgA1c, TSH Test 06/13/24 16:31 Hemoglobin A1c 5.7 % A1C (<5.7) Urinalysis Test 06/13/24 06:44 Urine Color Yellow (Yellow) Urine Clarity Clear (Clear) Urine pH 5.5 (5.0-9.0) Urine Specific [place] 1.024 (1.001-1.035) Urine Protein 1+ (Negative) H Urine Ketones Negative (Negative) Urine Blood 2+ /uL (Negative) H Urine Nitrite Negative (Negative) Urine Bilirubin Negative (Negative) Urine Urobilinogen Normal mg/dL (Negative) Urine Leukocyte Esterase Negative /uL (Negative) Urine RBC 17 /hpf (0 - 3) Urine Microscopic WBC 2 /HPF (0-3) Urine Squamous Epithelial Cells Few /hpf (<5) Urine Bacteria None seen /hpf (None Seen) Urine Hyaline Casts Few /lpf (0 - 2) Urine Mucus Few (None Seen) Urine Glucose Normal mg/dL (Normal) Labs and/or images reviewed: Labs reviewed by me, Image(s) reviewed by me Assessment/Plan Assessment/Plan Chest pain, rule out ACS, troponin negative times x 3 Sinus bradycardia with PVCs, magnesium oxide, cardiology consult appreciated Hypertension Dyslipidemia: Lipitor History of transient atrial fibrillation Acute kidney injury Morbid obesity Stress test six months ago by patient's primary reeling machine operator negative Constipation: Lactulose Plan discussed with: Patient Date of Service: Jun 14, 2024 Billing Provider: LILY JONAS MD Common Visit Codes: [id number] INP/OBS CARE(HIGH) LILY JONAS MD Jun 14, 2024 12:54
--- NOTE | 2024-06-14 13:28 | DVHSR ---
APPROVED REPORT EXAM: Two-dimensional and M-mode echocardiogram with Doppler and color Doppler. Blood Pressure: 117/60 mmHg INDICATION Chest Pain RISK FACTORS Obesity: Height: 5' 9", Weight: 250 DIMENSIONS LVDd4.3 (3.8-5.7cm)LA (2D)4.2 (1.9-4.0cm)Aortic Root4.0 (2.0-3.7cm) LVDs3.0 (2.5-4.0cm)LA (MM) (1.9-4.0cm)Aortic Cusp Exc1.9 (1.5-2.0cm) EF (%) 55.0 (55-70%)Rt. Atrium4.1 (1.9-4.0cm)Asc. Aorta cm IVSd1.1 (0.7-1.1cm)RV (D) (1.8-2.4cm) PWd1.1 (0.7-1.1cm) Mitral Valve MitralMitral Stenosis E wave0.80m/sMV Mean GR.mmHg A wave0.90m/sMV Peak GR.mmHg E/A ratio0.92D MVAcm2 Aortic Valve Aortic ValveAortic Stenosis V11.10m/Allen Mean GR.5mmHg V21.50m/Allen Peak GR.10mmHg LVOT Diameter2.4 (1.8-2.4cm)Doppler AVA3.32cm2 Pulmonic Valve V20.60m/s Tricuspid Valve TR Velocity2.20m/s [id number] Conclusion lvef 55% by visual estimae RV enlarged normal function biatrial enlargement mild
[2024-06-14] MEDS: LACTULOSE 20Gm/30ML SOLN PO ONE (13:38)
[2024-06-15 01:00] VITALS: BP 117/71; PULSE 55; RESP 17; TEMP 97.9; O2SAT 95
[2024-06-15 05:00] VITALS: BP 131/78; PULSE 50; RESP 18; TEMP 98; O2SAT 94
[2024-06-15 08:00] VITALS: PULSE 54
[2024-06-15 09:00] VITALS: BP 126/69; PULSE 59; RESP 20; TEMP 98; O2SAT 94
--- NOTE | 2024-06-15 10:12 | DVHPN2 ---
Progress Note Date Seen: Jun 14, 2024 Medical Necessity Reason Pt with a Central, PICC or Fol: No Subjective Patient reports: Feels better Objective vital signs Vital Sign Date Time Temp Pulse Resp B/P (MAP) Pulse Ox O2 Delivery O2 Flow Rate FiO2 06/15/24 09:00 98.0 59 20 126/69 (88) 94 98.0 06/14/24 20:00 Room Air* 0 21 Total Intake and Output 06/14/24 06/14/24 06/15/24 15:00 23:00 07:00 Intake Total 500 ml 300 ml Balance 500 ml 300 ml medications Current Medications Medications Dose Ordered Sig/Jimenez Route Start Time Stop Time Status Last Admin Dose Admin Albuterol 2.5 mg Q4HPRN PRN NEB 06/13/24 10:30 UNV Ipratropium [place] 0.5 mg Q4HPRN PRN NEB 06/13/24 10:30 UNV Aspirin 81 mg DAILY PO 06/13/24 11:44 06/15/24 09:43 81 MG Atorvastatin Calcium 40 mg HS PO 06/13/24 22:00 06/14/24 21:11 40 MG Morphine Sulfate 2 mg Q30MP PRN IV 06/13/24 10:30 Acetaminophen 650 mg Q6HP PRN PO 06/13/24 10:30 Nitroglycerin 0.4 mg Q5MINP PRN SL 06/13/24 10:30 Ondansetron HCl 4 mg Q4HP PRN IV 06/13/24 10:30 Sodium Chloride 1,000 ml @ 75 mls/hr [id number] IV 06/13/24 10:30 06/15/24 04:27 75 MLS/HR Magnesium Oxide 400 mg DAILY PO 06/14/24 10:00 06/15/24 09:43 400 MG Examination: GENERAL:Abnormal, HEENT:Abnormal, LUNGS:Abnormal, CVS:Abnormal, ABDOMEN:Abnormal laboratory and microbiology Laboratory Tests 06/14/24 06:30 Test 06/14/24 06:30 Range/Units Serum Glucose 94 74-106 mg/dL Problem List/Assessment/Plan Problem List/Assessment/Plan hx of chest pain sob obesity afib cont home meds pt had stress mpi done here and with his cards pt can fu with his cards trops re - Plan discussed with: Patient Date of Service: Jun 14, 2024 Billing Provider: HUE GOSS MD Common Visit Codes: NOT BILLABLE HUE GOSS MD Jun 15, 2024 10:11
--- NOTE | 2024-06-15 10:20 | DVHPN2 ---
Reviewed: Care Plan, H&P, Labs, Medications, Previous Orders, Radiology Changes from previous H/P or p: No Changes Eyes: No Pain, No Vision change, No Conjunctivae inflammation, No Eyelid inflammation, No Other, No Redness ENT: No Ear pain, No Ear discharge, No Nose pain, No Nose discharge, No Nose congestion, No Mouth pain, No Mouth swelling, No Throat pain, No Throat swelling, No Other Cardiovascular: Chest Pain; No Palpitations, No Orthopnea, No Paroxysmal Noc. Dyspnea, No Edema, No Lt Headedness, No Other Respiratory: No Cough, No Dry, No Shortness of breath, No SOB with excertion, No Wheezing, No Hemoptysis, No Pleuritic Pain, No Sputum, No Other Gastrointestinal: No Nausea, No Vomiting, No Abdominal Pain, No Diarrhea, No Constipation, No Melena, No Hematochezia, No Other Genitourinary: No Dysuria, No Frequency, No Incontinence, No Hematuria, No Retention, No Other Musculoskeletal: No other, No neck pain, No shoulder pain, No arm pain; back pain; No hand pain, No leg pain, No foot pain Skin: No Rash, No Lesions, No Jaundice, No Bruising, No Other Objective Vitals Vital Signs Date Time Temp Pulse Resp B/P (MAP) Pulse Ox O2 Delivery O2 Flow Rate FiO2 06/15/24 09:00 98.0 59 20 126/69 (88) 94 98.0 06/14/24 20:00 Room Air* 0 21 Intake/Output Intake and Output 06/15/24 07:00 Intake Total 800 ml Balance 800 ml Intake Oral 800 ml # Voids 5 Medications Current Medications Medications Dose Ordered Sig/Jimenez Route Start Time Stop Time Status Last Admin Dose Admin Albuterol 2.5 mg Q4HPRN PRN NEB 06/13/24 10:30 UNV Ipratropium [place] 0.5 mg Q4HPRN PRN NEB 06/13/24 10:30 UNV Aspirin 81 mg DAILY PO 06/13/24 11:44 06/15/24 09:43 81 MG Atorvastatin Calcium 40 mg HS PO 06/13/24 22:00 06/14/24 21:11 40 MG Morphine Sulfate 2 mg Q30MP PRN IV 06/13/24 10:30 Acetaminophen 650 mg Q6HP PRN PO 06/13/24 10:30 Nitroglycerin 0.4 mg Q5MINP PRN SL 06/13/24 10:30 Ondansetron HCl 4 mg Q4HP PRN IV 06/13/24 10:30 Sodium Chloride 1,000 ml @ 75 mls/hr [id number] IV 06/13/24 10:30 06/15/24 04:27 75 MLS/HR Magnesium Oxide 400 mg DAILY PO 06/14/24 10:00 06/15/24 09:43 400 MG Laboratory Results Laboratory Tests 06/14/24 06:30 Urinalysis Test 06/13/24 06:44 Urine Color Yellow (Yellow) Urine Clarity Clear (Clear) Urine pH 5.5 (5.0-9.0) Urine Specific [place] 1.024 (1.001-1.035) Urine Protein 1+ (Negative) H Urine Ketones Negative (Negative) Urine Blood 2+ /uL (Negative) H Urine Nitrite Negative (Negative) Urine Bilirubin Negative (Negative) Urine Urobilinogen Normal mg/dL (Negative) Urine Leukocyte Esterase Negative /uL (Negative) Urine RBC 17 /hpf (0 - 3) Urine Microscopic WBC 2 /HPF (0-3) Urine Squamous Epithelial Cells Few /hpf (<5) Urine Bacteria None seen /hpf (None Seen) Urine Hyaline Casts Few /lpf (0 - 2) Urine Mucus Few (None Seen) Urine Glucose Normal mg/dL (Normal) Labs and/or images reviewed: Labs reviewed by me, Image(s) reviewed by me Assessment/Plan Assessment/Plan Chest pain, rule out ACS, troponin negative times x 3 Sinus bradycardia with PVCs, magnesium oxide, cardiology consult appreciated, no further cardiac work up Hypertension Dyslipidemia: Lipitor History of transient atrial fibrillation Acute kidney injury Morbid obesity Stress test six months ago by patient's primary superintendent house negative Constipation: Lactulose Ejection fraction 55 % Plan discussed with: Patient My Orders Orders - LILY JONAS MD Procedure Category Date Status Time Electrocardigram EKG 06/15/24 Logged 07:21 Date of Service: Jun 15, 2024 Billing Provider: LILY JONAS MD Common Visit Codes: [id number] INP/OBS CARE(HIGH) LILY JONAS MD Jun 15, 2024 10:20
--- NOTE | 2024-06-15 10:31 | DVHDS2 ---
Discharge Summary Date of Admission Jun 13, 2024 at 10:51 Date of Discharge: Jun 15, 2024 Admitting Diagnosis Chest pain Wounds: None Labs/Diagnostic Data: Laboratory Results Test 06/14/24 06:30 06/13/24 16:31 06/13/24 09:45 06/13/24 06:44 White Blood Count 5.4 10^3/uL (4.4-10.8) Red Blood Count 4.37 10^6/uL (4.5-5.90) Hemoglobin 12.5 g/dL (13.5-17.5) Hematocrit 37.6 % (41.0-53.0) Mean Corpuscular Volume 86.0 fL (80.0-100.0) Mean Corpuscular Hemoglobin 28.6 pg (28.0-32.0) Mean Corpuscular Hemoglobin Concent 33.3 g/dL (32.0-36.0) Red Cell Distribution Width 14.3 % (11.8-14.3) Platelet Count 169 10^3/uL (140-450) Mean Platelet Volume 8.2 fL (6.9-10.8) Neutrophils (%) (Auto) 35.0 % (37.0-80.0) Lymphocytes (%) (Auto) 46.8 % (10.0-50.0) Monocytes (%) (Auto) 11.2 % (0.0-12.0) Eosinophils (%) (Auto) 6.2 % (0.0-7.0) Basophils (%) (Auto) 0.8 % (0.0-2.0) Neutrophils # (Auto) 1.9 10 ^3/uL (1.6-8.6) Lymphocytes # (Auto) 2.5 10 ^3/uL (0.4-5.4) Monocytes # (Auto) 0.6 10 ^3/uL (0-1.3) Eosinophils # (Auto) 0.3 10 ^3/uL (0-0.8) Basophils # (Auto) 0 10 ^3/uL (0-0.2) Nucleated Red Blood Cells 0.1 % Sodium Level 141 mmol/L (136-145) Potassium Level 3.8 mmol/L (3.5-5.1) Chloride Level 106 mmol/L (98-107) Carbon Dioxide Level 27 mmol/L (20-31) Anion Gap 8 (5-15) Blood Urea Nitrogen 10 mg/dL (9-23) Creatinine 1.08 mg/dL (0.700-1.30) Glomerular Filtration Rate Calc 70 mL/min (>90) BUN/Creatinine Ratio 9.3 (10.0-20.0) Serum Glucose 94 mg/dL (74-106) Calcium Level 9.6 mg/dL (8.7-10.4) Magnesium Level 2.0 mg/dL (1.6-2.6) Hemoglobin A1c 5.7 % A1C (<5.7) Troponin I High Sensitivity 3 ng/L (</=54) Triglycerides Level 68 mg/dL (< 150) Cholesterol Level 114 mg/dL (< 200) LDL Cholesterol 41 mg/dL (< 100) HDL Cholesterol 54 mg/dL (40-59) Thyroid Stimulating Hormone (TSH) 1.56 uIU/mL (0.55-4.78) Urine Color Yellow (Yellow) Urine Clarity Clear (Clear) Urine pH 5.5 (5.0-9.0) Urine Specific [place] 1.024 (1.001-1.035) Urine Protein 1+ (Negative) Urine Ketones Negative (Negative) Urine Blood 2+ /uL (Negative) Urine Nitrite Negative (Negative) Urine Bilirubin Negative (Negative) Urine Urobilinogen Normal mg/dL (Negative) Urine Leukocyte Esterase Negative /uL (Negative) Urine RBC 17 /hpf (0 - 3) Urine Microscopic WBC 2 /HPF (0-3) Urine Squamous Epithelial Cells Few /hpf (<5) Urine Bacteria None seen /hpf (None Seen) Urine Hyaline Casts Few /lpf (0 - 2) Urine Mucus Few (None Seen) Urine Glucose Normal mg/dL (Normal) Urine Opiates Screen Neg (NEGATIVE) Urine Fentanyl Screen Neg (NEGATIVE) Urine Barbiturates Screen Neg (NEGATIVE) Urine Phencyclidine Screen Neg (NEGATIVE) Urine Amphetamines Screen Neg (NEGATIVE) Urine Benzodiazepines Screen Neg (NEGATIVE) Urine Cocaine Screen Neg (NEGATIVE) Urine Cannabinoids Screen Neg (NEGATIVE) Test 06/13/24 06:40 Prothrombin Time 10.9 sec (9.3-11.8) Prothrombin Time INR 1.03 (0.9-1.15) Activated Partial Thromboplast Time 27.4 SEC (24.5-34.5) D-Dimer, Quantitative 0.29 mg/L FEU (0.0-0.49) Total Bilirubin 0.8 mg/dL (0.2-1.0) Aspartate Amino Transferase (AST) 15 U/L (13-40) Alanine Aminotransferase (ALT) 21 U/L (7-40) Alkaline Phosphatase 48 U/L (46-116) B-Type Natriuretic Peptide 14.28 pg/mL (0-100) Total Protein 7.1 g/dL (5.7-8.2) Albumin 4.4 g/dL (3.2-4.8) Other Laboratory Tests 06/14/24 06:30 Brief Hx & Hospital Course: 78-year-old male with a history of hypertension hypercholesterolemia AFib SOPHIA came in with chest pain troponin negative x3 ejection fraction 55 percent recent stress test six months ago by his primary station repairer negative. No further cardiac workup. Cleared for discharge by Cardiology patient is asymptomatic with stable vital signs and discharged home. Consults/Reason for consult Cardiology Dr. Rodriges Operations or Procedures Echocardiogram Condition at Discharge: Fair Final Diagnosis/Problems List Chest pain, rule out ACS, troponin negative times x 3 Sinus bradycardia with PVCs, magnesium oxide, cardiology consult appreciated, no further cardiac work up Hypertension Dyslipidemia: Lipitor History of transient atrial fibrillation Acute kidney injury Morbid obesity Stress test six months ago by patient's primary station repairer negative Constipation: Lactulose Ejection fraction 55 % Discharge Disposition: Home Discharge Instruct/Medications Diet: Cardiac 2g Na,low cholest Activity: Light activity Follow Up/Referral: Resume all previous home medications Follow up with your station repairer Medications: None 35 (Time taken for discharge summary 35 mts) Discharge Statement: "Patient was advised to return to the ER or call 911 if any headaches, dizziness, shortness of breath, chest pain, abdominal pain, bleeding, fevers, or worsening of medical condition. Patient was counseled about treatment plan, medications, possible side effects, patientverbalized understanding. All questions were answered to the best of my ability. This discharge took greater then 30 minutes in planning, reviewing documentation, counseling the patient, and discussing with other team members." ASSESSMENT ASSESSMENT Hospital Course Improved Assessment Chest pain, rule out ACS, troponin negative times x 3 Sinus bradycardia with PVCs, magnesium oxide, cardiology consult appreciated, no further cardiac work up Hypertension Dyslipidemia: Lipitor History of transient atrial fibrillation Acute kidney injury Morbid obesity Stress test six months ago by patient's primary station repairer negative Constipation: Lactulose Ejection fraction 55 % Date of Service: Jun 15, 2024 Common Visit Codes: 37550-EEQ/OBS DISCH DAY >30min LILY JONAS MD Jun 15, 2024 10:31
[2024-06-15] MEDS ORDERED: MAGN1TAB29 PO (10:33)
[2024-06-15 11:56] VITALS: BP 117/60; PULSE 50; RESP 17; TEMP 97.9; O2SAT 98
--- NOTE | 2024-06-15 15:50 | ECG ---
[facility] Test Date: 2024-06-14 Test Time: 04:17:10 Pat Name: REAGAN MCKEON Department: Respiratoy Room: 0219 B Gender: M Ironer Sock: : 1945 Requested By: LILY JONAS Order Number: [id number] Reading MD: Home Arthur Measurements Intervals [place] Rate: 48 P: 80 GA: 187 QRS: 53 QRSD: 95 T: 40 QT: 463 QTc: 414 Interpretive Statements Sinus bradycardia Multiform ventricular premature complexes Electronically Signed On 06-16-2024 8:16:00 PST by Home Arthur Please click the below link to view image of tracing.
--- NOTE | 2024-06-16 08:12 | ECG ---
[facility] Test Date: 2024-06-13 Test Time: 06:42:09 Pat Name: REAGAN MCKEON Department: ED Room: 0219 B Gender: M It Application Support Analyst: NALLELY : 1945 Requested By: BRIAN LAINEZ Order Number: [id number] Reading MD: Home Arthur Measurements Intervals [place] Rate: 69 P: 59 UT: 173 QRS: 27 QRSD: 106 T: 11 QT: 460 QTc: 493 Interpretive Statements Sinus rhythm Ventricular trigeminy Low voltage, precordial leads Borderline prolonged QT interval Electronically Signed On 06-16-2024 8:21:14 PST by Home Arthur Please click the below link to view image of tracing.
--- NOTE | 2024-06-16 13:30 | ECG ---
[facility] Test Date: 2024-06-13 Test Time: 13:27:25 Pat Name: REAGAN MCKEON Department: ER HOLDING Room: 0219 Gender: M Therapeutic Assistant: : 1945 Requested By: BRIAN LAINEZ Order Number: [id number] Reading MD: Measurements Intervals [place] Rate: 48 P: 63 AR: 184 QRS: -10 QRSD: 98 T: 22 QT: 457 QTc: 409 Interpretive Statements Sinus rhythm Ventricular trigeminy Borderline T abnormalities, anterior leads Please click the below link to view image of tracing.
--- NOTE | 2024-06-17 12:54 | ECG ---
[facility] Test Date: 2024-06-13 Test Time: 13:28:20 Pat Name: REAGAN MCKEON Department: ER HOLDING Room: 0219 B Gender: M Line Helper: : 1945 Requested By: BRIAN LAINEZ Order Number: [id number] Reading MD: Measurements Intervals [place] Rate: 46 P: 0 HI: 0 QRS: -15 QRSD: 110 T: 28 QT: 453 QTc: 397 Interpretive Statements Atrial fibrillation Borderline left axis deviation Borderline T abnormalities, anterior leads Please click the below link to view image of tracing.
== END 2024-06-15 12:30 | disposition home or self-care (01) | DRG 311 ==
LOC: ER 06:27 → UNDOADMIN 10:19 → OVERFLOW 10:19 → TELE-WESTW 18:00 → OVERFLOW 18:00 → CENTRAL 18:43
PROVIDERS: ADMIT Family Medicine; ATTEND Family Medicine
DX: I24.9 Acute ischemic heart disease, unspecified (principal); N17.0 Acute kidney failure with tubular necrosis; I49.3 Ventricular premature depolarization; R00.1 Bradycardia, unspecified; I48.91 Unspecified atrial fibrillation; E66.01 Morbid (severe) obesity due to excess calories; K59.00 Constipation, unspecified; I10 Essential (primary) hypertension; E78.00 Pure hypercholesterolemia, unspecified; Z82.49 Family history of ischemic heart disease and other diseases of the circulatory system; Z68.37 Body mass index [BMI] 37.0-37.9, adult
CPT/HCPCS: 36415; 71045; 80048; 80053; 80061; 80307; 81001; 83036; 83735; 83880; 84443; 84484; 85025; 85379; 85610; 85730; 93005; 93306; G0378